=== PATIENT | female | born 1990 | race Caucasian/White ===

== ENCOUNTER → 2021-06-30 | Outpatient (CLI) | payer BC, SELFPAY ==
[2021-06-30 14:33] LABS: hCG Titer Quant., Serum 148 mIU/mL (1-3)
== END | disposition home or self-care (01) ==
LOC: LAB 13:14
PROVIDERS: Referring Provider Obstetrics & Gynecology; Visit Provider Obstetrics & Gynecology
DX: N91.2 Amenorrhea, unspecified (principal)
CPT/HCPCS: 36415; 84702

== ENCOUNTER → 2021-07-02 | Outpatient (CLI) | payer BC, SELFPAY ==
[2021-07-02 14:02] LABS: hCG Titer Quant., Serum 430 mIU/mL (1-3)
== END | disposition home or self-care (01) ==
LOC: LAB 12:26
PROVIDERS: PCP Family Medicine; Referring Provider Obstetrics & Gynecology; Visit Provider Obstetrics & Gynecology
DX: N91.2 Amenorrhea, unspecified (principal)
CPT/HCPCS: 36415; 84702

== ENCOUNTER → 2021-08-07 | Outpatient (CLI) | payer BC, SELFPAY ==
[2021-08-07 17:53] LABS: Amphetamine Urine VISTA NEGATIVE (<1000 ng/mL); Barbiturate Urine VISTA NEGATIVE (< 200 ng/mL); Benzodiazepine Urine VISTA NEGATIVE (< 200 ng/mL); Cocaine Urine VISTA NEGATIVE (< 300 ng/mL); Ecstacy Urine VISTA NEGATIVE (< 500 ng/mL); Methadone Urine VISTA NEGATIVE (< 300 ng/mL); PCP Urine VISTA NEGATIVE (< 25 ng/mL); THC Urine VISTA NEGATIVE (< 50 ng/mL); Vista UDS pH Range 6
[2021-08-10 07:07] LABS: Chlamydia By Nucleic Acid AMP Negative (Negative)
[2021-08-10 08:34] LABS: Gonococcus By Nucleic Acid AMP Negative (Negative)
[2021-08-12 16:30] LABS: HPV Reflexed? NOT INDICATED
== END | disposition home or self-care (01) ==
PROVIDERS: PCP Family Medicine; Visit Provider Obstetrics & Gynecology
DX: Z34.90 Encounter for supervision of normal pregnancy, unspecified, unspecified trimester (principal)
CPT/HCPCS: 80307; 87086; 87088; 87491; 87591; 88175; G0145

== ENCOUNTER → 2021-08-13 | Outpatient (CLI) | payer BC, SELFPAY ==
[2021-08-13 12:25] LABS: Hematocrit 39.6 % (37-47); Hemoglobin 13.6 g/dL (12.0-15.0); Red Blood Count 4.22 M/mm3 (4.2-5.4); White Blood Count 10.8 K/mm3 (4.4-11.0)
[2021-08-13 12:26] LABS: Absolute Lymphocyte Count 2.75 X10^3/uL (0.83-4.51); Absolute Neutrophil Count 7.1 X10^3/uL (2.0-7.7); Basophil# 0.05 X10^3/uL; Basophil% 0.5 % (0-1); Eosinophil# 0.21 X10^3/uL; Eosinophils% 1.9 % (0-5); Lymphocyte # 2.75 X10^3/ul (0.83-4.51); Lymphocyte % 25.5 % (19-41); Mean Corp Hgb Conc 34.3 g/dL (32-36); Mean Corpuscular Hgb 32.2 pg (27.0-32.0); Mean Corpuscular Volume 93.8 fL (81-99); Mean Platelet Vol. 11.4 fl (6.2-12.0); Monocyte# 0.59 X10^3/uL; Monocyte% 5.5 % (0-10); NRBC Flagged by Analyzer 0 % (0-5); Neutrophil # 7.14 X10^3/uL (2.7-7.7); Neutrophil % 66.2 % (47-70); Platelet Count 256 K/mm3 (150-450); RBC Distribution Width CV 12.1 % (11.6-14.6); RBC Distribution Width SD 41.6 fl (35.1-43.9)
[2021-08-13 13:06] LABS: Glucose Challenge Gest 1H 50g 145 mg/dL (70-140)
[2021-08-13 13:07] LABS: NATERA MAILED SPECIMEN
[2021-08-13 13:42] LABS: HIV - WCH Non-Reactive (Nonreactive); Hepatitis B Surface Antigen Non-Reactive (Nonreactive); Hepatitis C Antibody Non-Reactive (Nonreactive); Rubella IgG Reactive (Nonreactive); Syphilis Antibodies Non-reactive
== END | disposition home or self-care (01) ==
LOC: LAB 11:52
PROVIDERS: PCP Family Medicine; Visit Provider Obstetrics & Gynecology
DX: Z34.90 Encounter for supervision of normal pregnancy, unspecified, unspecified trimester (principal)
CPT/HCPCS: 36415; 82950; 85025; 86703; 86762; 86780; 86803; 86850; 86900; 86901; 87340

== ENCOUNTER → 2021-08-19 | Outpatient (CLI) | payer BC, SELFPAY ==
[2021-08-19 10:47] LABS: Glucose GTT-Gestation. Fasting 109 mg/dL (<105)
[2021-08-19 12:05] LABS: Glucose GTT-Gestational 1 Hr 178 mg/dL (<190)
[2021-08-19 13:11] LABS: Glucose GTT-Gestational 2 Hr 151 mg/dL (<165)
[2021-08-19 14:02] LABS: Glucose GTT-Gestational 3 Hr 96 L (<145)
== END | disposition home or self-care (01) ==
LOC: LAB 09:45
PROVIDERS: PCP Family Medicine; Visit Provider Obstetrics & Gynecology
DX: Z13.1 Encounter for screening for diabetes mellitus (principal)
CPT/HCPCS: 36415; 82951; 82952

== ENCOUNTER → 2021-10-03 | Outpatient (CLI) | payer BC, SELFPAY | END | disposition home or self-care (01) | PROVIDERS: PCP Family Medicine; Referring Provider Obstetrics & Gynecology; Visit Provider Obstetrics & Gynecology | DX: Z34.90 Encounter for supervision of normal pregnancy, unspecified, unspecified trimester (principal) | CPT/HCPCS: 36415 ==

== ENCOUNTER → 2021-12-10 | Outpatient (CLI) | payer BC, SELFPAY ==
[2021-12-10 08:05] LABS: Glucose GTT-Gestation. Fasting 120 mg/dL (<105)
[2021-12-10 09:03] LABS: Glucose GTT-Gestational 1 Hr 240 mg/dL (<190)
[2021-12-10 10:09] LABS: Glucose GTT-Gestational 2 Hr 186 mg/dL (<165)
[2021-12-10 11:11] LABS: Glucose GTT-Gestational 3 Hr 84 L (<145)
== END | disposition home or self-care (01) ==
LOC: LAB 07:01
PROVIDERS: PCP Family Medicine; Visit Provider Obstetrics & Gynecology
DX: Z13.1 Encounter for screening for diabetes mellitus (principal)
CPT/HCPCS: 36415; 82951; 82952

== ENCOUNTER → 2022-01-08 | Outpatient (CLI) | payer BC, SELFPAY ==
--- NOTE | 2022-01-08 14:14 | US_ITS ---
STUDY: SECOND AND THIRD TRIMESTER OBSTETRICAL ULTRASOUND - LIMITED REASON FOR EXAM: Female, 31 years old. Gross. LMP: May 29, 2021 PRIOR ULTRASOUND: None. TECHNIQUE: Transabdominal TECHNICAL QUALITY: Adequate. FINDINGS: There is a single intrauterine fetus. The fetus is in a cephalic presentation. There is demonstrated cardiac activity with a heart rate of 143 bpm. There is a normal amniotic fluid volume. The largest amniotic fluid pocket measures 4.74 cm. The amniotic fluid index (LIANA) is 15.5 cm. The placenta is posterior in location and is not low lying. There are Grade 1 placental changes. The cervix measures 4.79 cm in length. BIOMETRY: BPD: 7.54 cm: 30 weeks, 3 days HC: 27.96 cm: 30 weeks, 4 days AC: 26.96 cm: 31 weeks, 0 days FL: 5.94 cm: 31 weeks, 0 days Age by LMP: 32 weeks, 0 days. VANESSA by LMP: March 05, 2022. age by current US: 30 weeks, 4 days. VANESSA by current US: March 15, 2021. Estimated weight: 1684 grams, +/- 253 grams, 50 percentile. Gender: Indeterminant US/OB Limited With Biometrics IMPRESSION: 1. Single live intrauterine at 30 weeks, 4 days. VANESSA is March 15, 2021. 2. EFW of 1684 g. 3. LIANA of 15.5 cm. 4. Posterior grade 1 placenta. 5. Vertex presentation. Electronically Signed: Velasquez Glover DO at 16:04 EDT Reading Location ID and State: [facility] / ID Tel [id number], Service support ,
== END | disposition home or self-care (01) ==
LOC: US 14:13
PROVIDERS: PCP Family Medicine; Referring Provider Obstetrics & Gynecology; Visit Provider Obstetrics & Gynecology
DX: O99.210 Obesity complicating pregnancy, unspecified trimester (principal); O24.419 Gestational diabetes mellitus in pregnancy, unspecified control; Z3A.00 Weeks of gestation of pregnancy not specified
CPT/HCPCS: 76816

== ENCOUNTER → 2022-01-09 | Outpatient (CLI) | payer BC, SELFPAY ==
[2022-01-09 13:10] LABS: Absolute Lymphocyte Count 2.53 X10^3/uL (0.83-4.51); Absolute Neutrophil Count 8.6 X10^3/uL (2.0-7.7); Basophil# 0.03 X10^3/uL; Basophil% 0.2 % (0-1); Eosinophil# 0.22 X10^3/uL; Eosinophils% 1.8 % (0-5); Hematocrit 36.7 % (37-47); Hemoglobin 12.3 g/dL (12.0-15.0); Lymphocyte # 2.53 X10^3/ul (0.83-4.51); Lymphocyte % 20.9 % (19-41); Mean Corp Hgb Conc 33.5 g/dL (32-36); Mean Corpuscular Hgb 31.5 pg (27.0-32.0); Mean Corpuscular Volume 93.9 fL (81-99); Mean Platelet Vol. 11.7 fl (6.2-12.0); Monocyte# 0.71 X10^3/uL; Monocyte% 5.9 % (0-10); NRBC Flagged by Analyzer 0 % (0-5); Neutrophil # 8.55 X10^3/uL (2.7-7.7); Neutrophil % 70.8 % (47-70); Platelet Count 254 K/mm3 (150-450); RBC Distribution Width CV 13.2 % (11.6-14.6); RBC Distribution Width SD 45.4 fl (35.1-43.9); Red Blood Count 3.91 M/mm3 (4.2-5.4); White Blood Count 12.1 K/mm3 (4.4-11.0)
== END | disposition home or self-care (01) ==
LOC: LAB 12:00
PROVIDERS: PCP Family Medicine; Referring Provider Obstetrics & Gynecology; Visit Provider Obstetrics & Gynecology
DX: Z34.80 Encounter for supervision of other normal pregnancy, unspecified trimester (principal)
CPT/HCPCS: 36415; 85025

== ENCOUNTER → 2022-02-05 | Outpatient (CLI) | payer BC, SELFPAY ==
--- NOTE | 2022-02-05 14:29 | US_ITS ---
STUDY: SECOND AND THIRD TRIMESTER OBSTETRICAL ULTRASOUND - LIMITED REASON FOR EXAM: Female, 31 years old Growth -- 36 weeks LMP: PRIOR ULTRASOUND: None. TECHNIQUE: Abdominal TECHNICAL QUALITY: Adequate. FINDINGS: There is a single intrauterine fetus. The fetus is in a cephalic presentation. There is demonstrated cardiac activity with a heart rate of 147 bpm. There is a normal amniotic fluid volume. The largest amniotic fluid pocket measures 6.8 cm. The amniotic fluid index (LIANA) is 13.29 cm. The placenta is posterior not low-lying There are Grade 1 placental changes. The cervix measures 3.3 cm in length. BIOMETRY: BPD: 8.12 cm: 32 weeks, 4 days HC: 30.4 cm: 33 weeks, 6 days AC: 31.7 cm: 35 weeks, 4 days FL: 6.5 cm: 33 weeks, 4 days Age by LMP: 36 weeks, 0 days. VANESSA by LMP: 03/05/2022. age by prior US: 34 weeks, 4 days. VANESSA by prior US: 03/15/2022 . age by current US: 33 weeks, 4 days. VANESSA by current US: 03/22/2022. Estimated weight: 2484 grams, +/- 373 grams, 19 percentile. US/OB Limited With Biometrics IMPRESSION: Viable intrauterine gestation approximately 33-34 weeks gestational age. No significant abnormality Electronically Signed: Braulio Gross MD at 18:10 EST ,
== END | disposition home or self-care (01) ==
LOC: OPUS 14:27
PROVIDERS: PCP Family Medicine; Referring Provider Obstetrics & Gynecology; Visit Provider Obstetrics & Gynecology
DX: O99.210 Obesity complicating pregnancy, unspecified trimester (principal); O24.419 Gestational diabetes mellitus in pregnancy, unspecified control; Z3A.00 Weeks of gestation of pregnancy not specified
CPT/HCPCS: 76816

== ENCOUNTER → 2022-02-06 | Outpatient (CLI) | payer BC, SELFPAY ==
[2022-02-06 18:53] LABS: Group B Strep DNA By PCR POSITIVE (Negative); Probe Check PASS
== END | disposition home or self-care (01) ==
PROVIDERS: PCP Family Medicine; Visit Provider Obstetrics & Gynecology
DX: Z34.90 Encounter for supervision of normal pregnancy, unspecified, unspecified trimester (principal)
CPT/HCPCS: 87653

== ENCOUNTER 2022-02-25 06:58 | Inpatient (IN) | payer BC, SELFPAY ==
[2022-02-25] VITALS (40 sets, daily range): BP systolic 106–145; BP diastolic 51–88; PULSE 72–125; TEMP 36.3–36.6; O2SAT 96–100; BMI 37.0
[2022-02-25] MEDS: Lactated Ringers 1,000 ML 200 ML IV ×3 (08:00→19:49)
--- NOTE | 2022-02-25 08:10 | HP.PCM.OB_ITS ---
HPI - General General Date of Admission: 02/25/22 HPI Narrative BRISEIDA NOVOA, is a 31 F at 38+6 who presents to L&D for IOL secondary to well controlled insulin dependent GDM. 3/80/-3 in the office on 02/20. complicated by obesity, GDM, positive GBS. Maternal Data Information VANESSA Calculator Estimated Delivery Date Method Current WG Current Estimate 03/05/22 LMP (Certain) 38w 6d PFSH PFSH Medical History Abrasion, left great toe, initial encounter Cellulitis of great toe, left History of cryptosporidiosis Home Medications prenat.vits,lydia,[id number] 1 tab PO DAILY 07/23/21 [History Last Taken Unknown] blood-glucose meter #1 ea 12/10/21 [Rx Last Taken Unknown] lancets #100 ea 12/10/21 [Rx Last Taken Unknown] lancets 33 gauge (BD Ultra Fine Lancets) #100 ea 12/10/21 [Rx Last Taken Unknown] lancets 33 gauge (BD Ultra Fine Lancets) #100 ea 12/10/21 [Rx Last Taken Unknown] pen needle, diabetic 32 gauge x 5/32 (BD Ultra-Fine Anny Pen Needle) #100 ea 02/24/22 [Rx Last Taken Unknown] insulin degludec 100 unit/mL (3 mL) subcutaneous pen (Tresiba FlexTouch U-100 insulin) 10 unit subcut DAILY gestational diabetes 02/25/22 [History Last Taken 02/24/22 22:00 4] insulin lispro 100 unit/mL subcutaneous pen (Humalog KwikPen (U-100) Insulin) 10 unit subcut TID gestational diabetes 02/25/22 [History Last Taken 02/24/22 18:30 28 units] Allergy/AdvReac Type Severity Reaction Status Date / Time amoxicillin [From Augmentin] Allergy Mild rash Verified 02/25/22 07:19 clavulanic acid Allergy Mild rash Verified 02/25/22 07:19 [From Augmentin] Family History Father Hypertension COPD (chronic obstructive pulmonary disease) Diverticulitis Surgical History S/P tonsillectomy and adenoidectomy Social History adopted: No household members: spouse number of children: 1 current occupational status: unemployed current occupation: [employer] pets and animals: Yes (avoid litter box) pets and animals: cat(s) and dog(s) Smoking Status: Former smoker alcohol intake: never substance use type: does not use do you feel safe at home: Yes additional social history: spouse:Lamine History 3 Elective abortions Hx Para 1 Spontaneous abortions 1 Hx # Term Pregnancies Ectopic pregnancies Hx # Pregnancies Multiple births # of living children 1 Past Pregnancies Del. Date Name GA/Weeks Outcome Route Bth Weight Gen Labor Lgth Anesthesia Del Locatn Provider FOB Unknown 04/15/17 Rhylynn 37 live - full term 5# 6oz Fe male 18 hr epidural [place] Lamine Unknown 04/2021 < 5 wk. no intervention spontaneous Delivery Date: Last Updated by: Peg Heath CUT OFF SAW SET UP OPERATOR, CUT OFF SAW SET UP OPERATOR-C GDM. Attempt vacuum but pop off. Placental abruption at end Visit Details Expected Delivery Route/Plan Labor Preferences- CB/BF classes: [] labor support person: [] labor intervention preferences: [] pain management options preferred: [] cut cord/dad catch: [] : [] PP control planned: [] discussed possible routes of delivery and associated risks: [] special requests: [] Plans Covid status: discussed Flu vaccine: discussed Tdap vaccine: [] Rhogam: [] LARC form signed: [] Problem list reviewed and updated with the most current plan of care details and appropriate orders placed. Relevant counseling for the gestational age provided. Continue routine care and follow up unless otherwise noted in visit notes/problem list details OB Flowsheet Initial Weight: Not Recorded Date -?-?-?-?-?-?-?-?-?-?-?-?- EGA Weight BP Urine Prot -?-?-?-?-?-?-?-?-?-?-?-?- Glucose FHR FuHt Pres Dilation -?-?-?-?-?-?-?-?-?-?-?-?- Effaced St Visit Note 08/07/21 -?-?-?-?-?-?-?-?-?-?-?-?- 10w 0d 203 lb 120/80 -?-?-?-?-?-?-?-?-?-?-?-?- 170 -?-?-?-?-?-?-?-?-?-?-?-?- SM- CRL cons wit h LMP 09/05/21 -?-?-?-?-?-?-?-?-?-?-?-?- 14w 1d 202 lb 2 oz 122/74 Nega tive -?-?-?-?-?-?-?-?-?-?-?-?- Negative 157 -?-?-?-?-?-?-?-?-?-?-?-?- JV- elevated fas ting in 3 hr. will recheck gct at 28 weeks. 10/03/21 -?-?-?-?-?-?-?-?-?-?-?-?- 18w 1d 205 lb 6 oz 100/60 Nega tive -?-?-?-?-?-?-?-?-?-?-?-?- Negative 145 -?-?-?-?-?-?-?-?-?-?-?-?- SM- no vb lof no ctx 10/31/21 -?-?-?-?-?-?-?-?-?-?-?-?- 22w 1d 206 lb -?-?-?-?-?-?-?-?-?-?-?-?- 155 22 -?-?-?-?-?-?-?-?-?-?-?-?- JV-no lof, vag b leeding or dec fm. pt prefers to have the 3 hr at 28 weeks rather than the 1 hr gct. 11/28/21 -?-?-?-?-?-?-?-?-?-?-?-?- 26w 1d 211 lb 120/72 Negative -?-?-?-?-?-?-?-?-?-?-?-?- Negative 145 26 -?-?-?-?-?-?-?-?-?-?-?-?- SM- no vb lof go od fm no regular ctx 12/12/21 -?-?-?-?-?-?-?-?-?-?-?-?- 28w 1d 215 lb 2 oz 113/71 Nega tive -?-?-?-?-?-?-?-?-?-?-?-?- Negative 148 29 -?-?-?-?-?-?-?-?-?-?-?-?- JV- pt was only able to collect one fasting and 1 2-hr pp so far as she just received her monitor last night. So far her fasting was elevated at 120 but she had a burger with a bun and fries for dinner. She plans to alter her diet and continue monitoring this week. She will call us for more instruction until she can get in with Dr. Gudino next week. 12/26/21 -?-?-?-?-?-?-?-?-?-?-?-?- 30w 1d 213 lb 8 oz 112/67 Nega tive -?-?-?-?-?-?-?-?-?-?-?-?- Negative 140 32 -?-?-?-?-?-?-?-?-?-?-?-?- SM- no vb lof go od fm no regular ctx 01/09/22 -?-?-?-?-?-?-?-?-?-?-?-?- 32w 1d 215 lb 106/65 Negative -?-?-?-?-?-?-?-?-?-?-?-?- Negative 145 -?-?-?-?-?-?-?-?-?-?-?-?- JV- nst reactive . growth scan showed 50th% for weight and normal LIANA yesterday. 01/13/22 -?-?-?-?-?-?-?-?-?-?-?-?- 32w 5d 215 lb 111/63 Negative -?--?-?-?-?-?-?-?-?-?-?-?- Negative 130 -?-?-?-?-?-?-?-?-?-?-?-?- JV- NST reactive . glucose levels all under good control. recently decreased her insulin 2 points. 01/20/22 -?-?-?-?-?-?-?-?-?-?-?-?- 33w 5d 216 lb 4 oz 106/62 Nega tive -?-?-?-?-?-?-?-?-?-?-?-?- Negative 150 -?-?-?-?-?-?-?-?-?-?-?-?- MH-NST only reac tive 01/23/22 -?-?-?-?-?-?-?-?-?-?-?-?- 34w 1d 215 lb 3 oz 103/65 Nega tive -?-?-?-?-?-?-?-?-?-?-?-?- Negative 130 -?-?-?-?-?-?-?-?-?-?-?-?- JV- glucose leve ls well controlled. NST reactive. pt has persistent sinus ifxn. will start zpak. 01/26/22 -?-?-?-?-?-?-?-?-?-?-?-?- 34w 4d 214 lb 122/80 Negative -?-?-?-?-?-?-?-?-?-?-?-?- Negative 140 35 -?-?-?-?-?-?-?-?-?-?-?-?- MH-No VB, LOF. G ood FM. Reactive NST. BS well controlled. 02/03/22 -?-?-?-?-?-?-?-?-?-?-?-?- 35w 5d 210 lb 118/70 Negative -?-?-?-?-?-?-?-?-?-?-?-?- Negative 140 -?-?-?-?-?-?-?-?-?-?-?-?- MH-NST only reac tive 02/06/22 -?-?-?-?-?-?-?-?-?-?-?-?- 36w 1d 217 lb 4 oz 124/76 Nega tive -?-?-?-?-?-?-?-?-?-?-?-?- Negative 147 36 Cephalic -?-?-?-?-?-?-?-?-?-?-?-?- JV- pt declines exam. she states that it causes contractions. gbs collected. nst reative. growth 19th%. continue twice weekly nsts and deliver at 39 weeks. 02/10/22 -?-?-?-?-?-?-?-?-?-?-?-?- 36w 5d 219 lb 102/60 Negative -?-?-?-?-?-?-?-?-?-?-?-?- Negative 140 -?-?-?-?-?-?-?-?-?-?-?-?- MH-NST only reac tive 02/13/22 -?-?-?-?-?-?-?-?-?-?-?-?- 37w 1d 218 lb 2 oz 110/71 Nega tive -?-?-?-?-?-?-?-?-?-?-?-?- Negative 150 37 Cephalic -?-?-?-?-?-?-?-?-?-?-?-?- JV- nst reactive . no complaints today declines exam. 02/20/22 -?-?-?-?-?-?-?-?-?-?-?-?- 38w 1d 222 lb 6 oz 124/80 Nega tive -?-?-?-?-?-?-?-?-?-?-?-?- Negative 140 38 Cephalic 3 -?-?-?-?-?-?-?-?-?-?-?-?- 80 -3 JV- reacti ve nst JV- reactive nst. IOL set up for next Wednesday (first available opening) 02/25/22 -?-?-?-?-?-?-?-?-?-?-?-?- 38w 6d 222 lb 6.819 oz 118/65 -?-?-?-?-?-?-?-?-?-?-?-?- -?-?-?-?-?-?-?-?--?-?-?-?- NST FHR Rate Baby A Baseline: 150 Variability:: Moderate Accelerations:: 15 x 15 Decelerations:: None NST Reactive:: Yes FHR Category:: Category I Uterine Activity:: q10 minutes ROS Cardiovascular Cardiovascular: Denies abdominal pain, chest pain, diaphoresis, dyspnea, edema or fatigue Respiratory/Chest Respiratory/Chest: Denies change in mental status, chest congestion, chest tightness, cough, shortness of breath at rest, shortness of breath with exertion, breast mass, breast pain, breast skin changes, breast swelling, change in breast shape or nipple discharge Gastrointestinal Gastrointestinal: Denies diarrhea, hemorrhoids, nausea, vomiting or weight changes Genitourinary Genitourinary: Denies abdominal discomfort, burning urination, change in libido, change in urinary stream, contractions, difficulty urinating, dysuria, movement, low back pain, urinary frequency, urinary hesitancy, urinary incontinence or urinary urgency Musculoskeletal Musculoskeletal: Reports none Integumentary Integumentary: Reports none Neurologic Neurologic: Reports none Psychiatric Psychiatric: Reports none Endocrine Endocrinology: Reports none Hematologic/Lymphatic Hematologic/Lymphatic: Reports none Allergic/Immunologic Allergic/Immunologic: Reports none Vital Signs Vital Signs Vital Signs: 02/25/22 07:45 02/25/22 07:45 02/25/22 09:21 Temperature 97.3 F L Pulse Rate 77 Blood Pressure 118/65 BP Systolic 118 BP Diastolic 65 Weight Weight: 222 lb 6.819 oz Body Mass Index (BMI) 37.0 Physical Exam Const alert, oriented x3 and no apparent distress General Appearance: cooperative, comfortable and well kempt; Negative for in distress Orientation / Consciousness: awake and oriented to person Exam Limitations: no limitations HEENT normocephalic Mouth: oral and palatal mucosa normal Neck full ROM and thyroid normal Chest inspection of chest normal Resp normal respiratory effort Effort and Inspection: able to speak in complete sentences and symmetric chest movement Cardio regular rate Peripheral Pulses: pulses 2+ throughout GI normal to inspection, nondistended, normoactive bowel sounds Inspection: gravid no CVA tenderness and appearance of the vagina normal External Female Exam: normal appearance of the urethra; Negative for external lesion OB / External & Speculum: external exam normal Manual OB Exam: estimated gestational size appropriate and presentation cephalic Uterus Palpation: Negative for uterus tender Extremity normal to inspection Skin no rashes or lesions noted Neuro deep tendon reflexes 2+ bilaterally and gait normal Motor Exam: strength 5/5 throughout and clonus absent Psych Activity / Motor Behavior: appropriate eye contact Speech: normal speech Labs Labs Labs: Blood Type B POSITIVE Antibody Screen NEGATIVE Hct 36.2 % (37-47) L Hgb 12.0 g/dL (12.0-15.0) Pap Smear Negative Obstetrics US Syphilis Total Ab Non-reactive Rubella IgG Antibody Reactive (Nonreactive) Hep Bs Antigen Non-Reactive (Nonreactive) Chlamydia DNA (JAIME) Negative (Negative) Neisseria gonorrhoeae DNA (JAIME) Negative (Negative) HIV 1&2 Antibody Non-Reactive (Nonreactive) Glucose 1 Hr 50 gm 145 mg/dL (70-140) H Group B Strep DNA POSITIVE (Negative) H Miscellaneous Test Assessment & Plan (1) GBS (group B streptococcus) infection: COMMENT: Needs PCN at delivery (2) Gestational diabetes: COMMENT: sees endocrine, on insulin. plan 2x weekly testing, growth us q 4 weeks, deliver at 39. 01/08 growth nl 1684g 50%. 02/05 growth NL (3) Obesity affecting : COMMENT: BMI 32 1 TM GCT encouraged healthy weight gain (4) : QUALIFIERS: Weeks of gestation: 38 weeks Qualified Code(s): Z3A.38 - 38 weeks gestation of COMMENT: anatomy nl, NIPT low risk, declined carrier screen. AFP Negative 10/08/21 (5) Supervision of other normal : COMMENT: PRR VANESSA:03/05/22, girl (secret) PC:Rhylynn. Sp:Lamine PLAN: Plan Patient presents for IOL for GDM. -pitocin per protocol -monitor blood glucose per protocol for insulin dependent GDM Pain management: plans epidural. GBS positive plan IV PCN. no reaction to PCN per patient. Management of any complications: none I have reviewed the [facility] and made any clinically relevant updates. Dr. Art updated on assessment, plan of care and agrees with CNM/DO co- management of care for insulin dependent GDM.
[2022-02-25 08:20] LABS: Basophil# 0.05 X10^3/uL; Basophil% 0.4 % (0-1); Eosinophil# 0.28 X10^3/uL; Eosinophils% 2.1 % (0-5); Hematocrit 36.2 % (37-47); Lymphocyte % 23.9 % (19-41); Mean Corp Hgb Conc 33.1 g/dL (32-36); Mean Corpuscular Volume 93.5 fL (81-99); Mean Platelet Vol. 11.8 fl (6.2-12.0); Monocyte# 0.76 X10^3/uL; Monocyte% 5.7 % (0-10); NRBC Flagged by Analyzer 0 % (0-5); Neutrophil # 9.03 X10^3/uL (2.7-7.7); Neutrophil % 67.5 % (47-70); Platelet Count 254 K/mm3 (150-450); RBC Distribution Width CV 13.5 % (11.6-14.6); RBC Distribution Width SD 46.1 fl (35.1-43.9); Red Blood Count 3.87 M/mm3 (4.2-5.4); White Blood Count 13.4 K/mm3 (4.4-11.0)
[2022-02-25] MEDS: Oxytocin 15 Units/NS 250ml 15 UNITS/250 ML IV.SOLN 2 UNITS IV (08:20)
[2022-02-25 08:26] LABS: Bedside Glucose 135 mg/dL (74-106)
[2022-02-25 10:10] LABS: Bedside Glucose 109 mg/dL (74-106)
[2022-02-25] MEDS: Penicillin G 3,000,000 Units 50 ML 100 UNITS IV ×3 (13:10→21:44)
--- NOTE | 2022-02-25 13:10 | PN_ITS ---
Progress Note The nurse journeyman carpenter asked for assistance in rupturing membranes. pt is sitting up in bed and has no complaints. current tracing: FHT: Moderate variability reactive no decelerations category I tracing [place]: q3 min Contractions cx: 4-5/80/-2 membranes ruptured with clear fluid return reviewed tracing abnormalities since last note: same, no changes A/P: GDMB glucose levels are 100's membranes ruptured continue pitocin.
[2022-02-25] MEDS: fentaNYL-bupivacaine (epidural) 100 ML BAG EPIDURAL (14:05)
[2022-02-25 14:41] LABS: Bedside Glucose 90 mg/dL (74-106)
[2022-02-25 16:05] LABS: Bedside Glucose 123 mg/dL (74-106)
[2022-02-25 17:10] LABS: Bedside Glucose 75 mg/dL (74-106)
--- NOTE | 2022-02-25 18:03 | PCM.PN.OB ---
Subjective Subjective pt comfortable with epidural Objective Data Objective Data Vital Signs: Vital Signs Temp Pulse BP Pulse Ox 97.3 F L 78 125/73 H 100 02/25/22 17:09 02/25/22 16:18 02/25/22 16:18 02/25/22 14:42 Weight: 222 lb 6.819 oz Body Mass Index (BMI) 37.0 Intake & Output: Intake and Output for Last 24 Hours 02/23/22 02/24/22 02/25/22 23:59 23:59 23:59 Intake Total 1217.90 / 1217.90 Output Total 1000 / 1000 Balance 217.90 / 217.90 Lab / Micro Data Attestation: I reviewed the patient's lab results. Result Diagrams: 02/25/22 08:00 Labs: Laboratory Results - last 24 hr 02/25/22 08:00: WBC 13.4 H, RBC 3.87 L, Hgb 12.0, Hct 36.2 L, MCV 93.5, MCH 31.0, MCHC 33.1, RDW Std Deviation 46.1 H, RDW Coeff of Umberto 13.5, Plt Count 254, MPV 11.8, Immature Gran % (Auto) 0.400, Neut % (Auto) 67.5, Lymph % (Auto) 23.9, [place] % (Auto) 5.7, Eos % (Auto) 2.1, Baso % (Auto) 0.4, Absolute Neuts (auto) 9.0 H, Absolute Lymphs (auto) 3.20, Nucleated RBC % 0 02/25/22 08:00: Blood Type B POSITIVE, Antibody Screen NEGATIVE 02/25/22 08:06: POC Glucose 135 H 02/25/22 09:49: POC Glucose 109 H 02/25/22 14:20: POC Glucose 90 02/25/22 15:42: POC Glucose 123 H 02/25/22 16:47: POC Glucose 75 Physical Exam Const alert, oriented x3 and no apparent distress General Appearance: cooperative and comfortable GI Palpation: soft Uterus Palpation: Negative for uterus tender Amniotic Fluid: clear amniotic fluid Neuro oriented x3 Psych mental status grossly normal NST FHR Rate Baby A Baseline: 140 Variability:: Moderate Accelerations:: 15 x 15 Decelerations:: None NST Reactive:: Yes FHR Category:: Category I Uterine Activity:: MDU 190 after 6pm, pitocin on 16mu Assessment & Plan (1) GBS (group B streptococcus) infection: COMMENT: adequately treated. (2) Gestational diabetes: COMMENT: sees endocrine, on insulin. plan 2x weekly testing, growth us q 4 weeks, deliver at 39. 01/08 growth nl 1684g 50%. 02/05 growth NL PLAN: continue insulin protocol. glucose currently controlled. (3) Obesity affecting : COMMENT: BMI 32 1 TM GCT encouraged healthy weight gain (4) Supervision of other normal : COMMENT: PRR VANESSA:03/05/22, girl (secret) PC:Rhylynn. Sp:Lamine (5) : QUALIFIERS: Weeks of gestation: 38 weeks Qualified Code(s): Z3A.38 - 38 weeks gestation of COMMENT: anatomy nl, NIPT low risk, declined carrier screen. AFP Negative 10/08/21 (6) Encounter for induction of labor: COMMENT: pitocin induction. currently on 16mu increasing per protocol. IUPC in place
[2022-02-25] MEDS: Ondansetron 4 MG/2 ML Vial IV (18:32)
[2022-02-25 18:35] LABS: Bedside Glucose 75 mg/dL (74-106)
[2022-02-25 19:11] LABS: Bedside Glucose 80 mg/dL (74-106)
[2022-02-25 19:51] LABS: Bedside Glucose 65 mg/dL (74-106)
[2022-02-25 20:51] LABS: Bedside Glucose 75 mg/dL (74-106)
[2022-02-25] MEDS: 0.9% Saline Lock 10 ML Syringe IV (21:44)
[2022-02-25] MEDS: DiphenhydrAMINE 50 MG/ML Syringe IV (21:44)
[2022-02-25 21:50] LABS: Bedside Glucose 76 mg/dL (74-106)
[2022-02-25 23:00] LABS: Bedside Glucose 80 mg/dL (74-106)
[2022-02-25] MEDS: Oxytocin 15 Units/NS 250ml 15 UNITS/250 ML IV.SOLN 83 UNITS IV (23:33)
[2022-02-25] MEDS: Oxytocin 10 UNITS/ML Vial IM (23:34)
--- NOTE | 2022-02-25 23:42 | OP.PCM_ITS ---
Assessment & Plan (1) (spontaneous vaginal delivery): COMMENT: s/p IOL for GDM insulin dependent.38+6. girl:Ruby. MILLER Maternal Data Information VANESSA Calculator Estimated Delivery Date Method Current WG Current Estimate 03/05/22 LMP (Certain) 38w 6d Final VANESSA: 03/05/22 Vaginal Delivery Maternal Presentation Maternal Presentation: Medically Indicated Induction (GDM insulin) Type of Induction: Pitocin and Amniotomy Medical Reason for Induction: Maternal Medical Condition: list: (GDM 2) Operative Information Date of Procedure: 02/25/22 Pre-Operative Diagnosis: Post-Operative Diagnosis: same Surgery / Procedure Performed: Spontaneous Vaginal Delivery Type of Anesthesia: Epidural Drain: [place] to straight drain Estimated Blood Loss: 200 Time of Delivery: 23:17 Findings Description of Procedure: Patient began pushing and delivered the head in the CHARMAINE presentation. The head was delivered atraumatically . The anterior and posterior shoulders delivered without complication followed by the rest of the infant and the was placed on the maternal abdomen. Delayed cord clamping was employed for approximately 60 seconds. Cord was clamped and cut and gentle traction was applied to the cord and the placenta delivered spontaneously immediately following it was noted to be intact with three-vessel cord. The perineum and vagina were inspected and 1st degree laceration repaired with 3.0 Vicryl in usu al fashion. EBL was 200cc. Patient and infant tolerated delivery well. entered recovery phase in stable condition, bonding skin to skin Presentation: CHARMAINE Amniotic Membrane Rupture Type: Artificial Time of Membrane Rupture: 1300 Amniotic Fluid Description: Clear Placental Delivery Description: Spontaneous Placenta Disposition: [facility] Cord Vessel Description: 3 Vessels Cord Entanglement: None A Gender: Female (1 minute): 8 (5 minute): 9 Delayed Cord Clamping: Yes Post Vaginal Delivery Medications Given After Delivery: IV Pitocin Episiotomy Description: None Laceration: 1st degree Complication Complications: None Procedures Urinary/Genital [id number]: [id number] Vaginal Delivery global pkg (CNM delivery)
--- NOTE | 2022-02-25 23:47 | DCINST_ITS ---
Discharge Instructions Diet Discharge Diet: No restrictions Activity Discharge Activity: May Not Drive and May Shower May resume sexual activity in: 6 weeks (after visit) Weight Bearing Status: Full weight bearing Dressing / Incision Call your doctor if your incision/area has: Sudden Increased Bleeding, Increased Pain/ Swelling and Foul Smelling Discharge Call your doctor if you observe: Fever of 101 or Higher, Numbness or Tingling, Change in Color, Inability to urinate, Inability to have a bowel movement, Using more than 1 pad per hour, Shortness of breath, Dizziness, Fainting spells, Chest pain, Calf discomfort and Uncontrolled pain Follow Up Care Please Follow Up With: Analy Hinkle CNM When: 6 weeks , please call office to make an appointment. Congratulations on the of your baby Lisandra! Test Results: Test results from this visit will be discussed in further detail at your follow- up appointment, if applicable. Discharge Plan Admission Admit Date/Time: 02/25/22 06:58 Attending Provider: Anayl Hinkle Primary Care Provider: Eduin Lora Discharge Orders/Prescriptions Prescriptions: No Action prenat.vits,lydia,[id number] Tablet 1 tab PO DAILY insulin degludec [Tresiba FlexTouch U-100] 100 unit/mL (3 mL) insulin pen 10 unit subcut DAILY insulin lispro [Humalog KwikPen Insulin] 100 unit/mL insulin pen 10 unit subcut TID (DME) lancets [BD Ultra Fine Lancets] 33 gauge misc See Rx Instructions .MEDSUPPLY Qty: 100 0RF Rx Instructions: As directed (DME) blood-glucose meter Misc See Rx Instructions miscellaneous .MEDSUPPLY Qty: 1 0RF Rx Instructions: As directed- Test fasting and 2 hours after meals (DME) lancets Misc See Rx Instructions .MEDSUPPLY Qty: 100 4RF Rx Instructions: As directed (DME) lancets [BD Ultra Fine Lancets] 33 gauge misc See Rx Instructions .MEDSUPPLY Qty: 100 4RF Rx Instructions: As directed (DME) pen needle, diabetic [BD Ultra-Fine Anny Pen Needle] 32 gauge x 5/32 needle See Rx Instructions .Route Qty: 100 1RF Rx Instructions: As directed Referrals / Follow Up: Eduin Lora MD [Primary Care Provider] -
[2022-02-26] VITALS (35 sets, daily range): BP systolic 106–127; BP diastolic 51–77; PULSE 80–110; RESP 16; TEMP 35.7–36.8; O2SAT 97–98
[2022-02-26 00:51] LABS: Bedside Glucose 93 mg/dL (74-106)
[2022-02-26] MEDS: Methylergonovine 0.2 MG/ML Ampul IM (00:56)
[2022-02-26 07:00] LABS: Bedside Glucose 101 mg/dL (74-106)
--- NOTE | 2022-02-26 07:44 | PN.OBGYN_ITS ---
Subjective Subjective Patient doing well without complaints. Tolerating PO. Ambulating and voiding without difficulty. Feeding well. Denies chest pain, shortness of breath, calf pain/swelling, fevers, chills, lightheadedness. Objective Data Objective Data Vital Signs: Vital Signs Temp Pulse Resp BP Pulse Ox O2 Del Method 97.6 F L 91 16 121/77 H 98 Room Air 02/26/22 05:11 02/26/22 05:11 02/26/22 05:11 02/26/22 05:11 02/26/22 05:11 02/26/22 05:11 Oxygen Delivery Method Room Air Weight: 222 lb 6.819 oz Body Mass Index (BMI) 37.0 Intake & Output: Intake and Output for Last 24 Hours 02/24/22 02/25/22 02/26/22 23:59 23:59 23:59 Intake Total 2349.37 / 2349.37 1287.93 / 1287.93 Output Total 1000 / 1000 1400 / 1400 Balance 1349.37 / 1349.37 -112.07 / -112.07 Lab / Micro Data Result Diagrams: 02/25/22 08:00 Labs: Laboratory Results - last 24 hr 02/25/22 08:00: WBC 13.4 H, RBC 3.87 L, Hgb 12.0, Hct 36.2 L, MCV 93.5, MCH 31.0, MCHC 33.1, RDW Std Deviation 46.1 H, RDW Coeff of Umberto 13.5, Plt Count 254, MPV 11.8, Immature Gran % (Auto) 0.400, Neut % (Auto) 67.5, Lymph % (Auto) 23.9, [place] % (Auto) 5.7, Eos % (Auto) 2.1, Baso % (Auto) 0.4, Absolute Neuts (auto) 9.0 H, Absolute Lymphs (auto) 3.20, Nucleated RBC % 0 02/25/22 08:00: Blood Type B POSITIVE, Antibody Screen NEGATIVE 02/25/22 08:06: POC Glucose 135 H 02/25/22 09:49: POC Glucose 109 H 02/25/22 14:20: POC Glucose 90 02/25/22 15:42: POC Glucose 123 H 02/25/22 16:47: POC Glucose 75 02/25/22 17:51: POC Glucose 75 02/25/22 18:37: POC Glucose 80 02/25/22 19:28: POC Glucose 65 L 02/25/22 20:24: POC Glucose 75 02/25/22 21:29: POC Glucose 76 02/25/22 22:28: POC Glucose 80 02/26/22 00:24: POC Glucose 93 02/26/22 06:35: POC Glucose 101 Physical Exam Const alert and oriented x3 HEENT normocephalic Eyes PERRL Neck full ROM Resp normal respiratory effort GI soft to palpation GI Narrative: FF below U Assessment & Plan (1) (spontaneous vaginal delivery): COMMENT: s/p IOL for GDM insulin dependent.38+6. girl:Lisandra. LC (2) Gestational diabetes: COMMENT: sees endocrine, on insulin. PLAN: Plan s/p PPD # 1 1. routine post delivery care 2. breast feeding- support given 3. rh positive 4. rubella immune 5. glucose stable at present
[2022-02-26] MEDS: Acetaminophen 500 MG Tablet 1000 MG PO (09:28)
[2022-02-26] MEDS: 0.9% Saline Lock 10 ML Syringe IV (13:06)
[2022-02-27 02:00] VITALS: BP 117/71; PULSE 66; RESP 16; TEMP 36.4; O2SAT 97
[2022-02-27] MEDS: Acetaminophen 500 MG Tablet 1000 MG PO (02:19)
--- NOTE | 2022-02-27 08:14 | PCM.DC.SUM ---
Providers Date of Admission: 02/25/22 Primary Care Physician: Dr. Eduin Lora MD Reason For Visit: VAG Diagnosis Discharge Diagnosis (1) (spontaneous vaginal delivery): Status: Acute Code(s): O80 - Encounter for full-term uncomplicated delivery (2) Gestational diabetes: Status: Acute Code(s): O24.419 - Gestational diabetes mellitus in , unspecified control Medications at Discharge Home Medications prenat.vits,lydia,[id number] 1 tab PO DAILY 07/23/21 blood-glucose meter #1 ea 12/10/21 lancets #100 ea 12/10/21 lancets 33 gauge (BD Ultra Fine Lancets) #100 ea 12/10/21 lancets 33 gauge (BD Ultra Fine Lancets) #100 ea 12/10/21 pen needle, diabetic 32 gauge x 5/32 (BD Ultra-Fine Anny Pen Needle) #100 ea 02/24/22 naproxen 500 mg tablet,delayed release 500 mg PO BID PRN pain #40 tabs 02/27/22 Hospital Course Procedures - (vaginal delivery) Summary of Care Provided Minutes Spent on Discharge: 15 Hospital Course: The patient was admitted to L&D on 02/25/22 for IOL due to gestational diabetes on insulin. She was induced with pitocin and amniotomy and delivered around midnight on 02/26/22. She recovered well on ppd#0 and by PPD #1 she was ready to be discharged to home. Physical Exam Const alert, oriented x3 and no apparent distress General Appearance: cooperative and comfortable Resp normal respiratory effort Cardio regular rate GI normal to inspection, nondistended, normoactive bowel sounds GI Narrative: uterus is firm below umbilicus Palpation: soft Back/Spine no CVA tenderness and thoraco-lumbar ROM normal Extremity normal to inspection, no clubbing, cyanosis or edema, no calf tenderness and no pedal edema Psych mental status grossly normal, thought process normal, cooperative, affect normal, speech normal, activity/motor behavior normal, denies homicidal ideation and denies suicidal ideation Weight / BMI Weight Weight: 222 lb 6.819 oz Body Mass Index (BMI) 37.0 ABG / Lab / Microbiology Data Result Diagrams: 02/25/22 08:00 D/C Instructions Discharge Diet: No restrictions May resume sexual activity in: 6 weeks (after visit) Weight Bearing Status: Full weight bearing Call your doctor if your incision/area has: Sudden Increased Bleeding, Increased Pain/ Swelling and Foul Smelling Discharge Call your doctor if you observe: Fever of 101 or Higher, Numbness or Tingling, Change in Color, Inability to urinate, Inability to have a bowel movement, Using more than 1 pad per hour, Shortness of breath, Dizziness, Fainting spells, Chest pain, Calf discomfort and Uncontrolled pain Please Follow Up With: Analy Hinkle CNM When: 6 weeks , please call office to make an appointment. Congratulations on the of your baby Lisandra! Meaningful Use Info Meaningful Use Diagnoses (Choose all that apply): None applicable Discharge Plan Admission Admit Date/Time: 02/25/22 06:58 Primary Reason for Your Visit: vaginal delivery Attending Provider: Analy Hinkle Primary Care Provider: Eduin Lora Instructions Additional Instructions / Restrictions: No need to continue insulin at this time . Please do Continue monitoring fasting and 2 hr postprandial glucose levels for 2 more weeks. Call if glucose levels are over 120 fasting or 150 postprandial. In that case we may re-start the insulin. Discharge Orders/Prescriptions Prescriptions: New naproxen 500 mg tablet,delayed release (DR/EC) 500 mg PO BID PRN (Reason: pain) Qty: 40 0RF Continued prenat.vits,lydia,[id number] Tablet 1 tab PO DAILY Discontinued insulin degludec [Tresiba FlexTouch U-100] 100 unit/mL (3 mL) insulin pen 10 unit subcut DAILY insulin lispro [Humalog KwikPen Insulin] 100 unit/mL insulin pen 10 unit subcut TID No Action (DME) lancets [BD Ultra Fine Lancets] 33 gauge misc See Rx Instructions .MEDSUPPLY Qty: 100 0RF Rx Instructions: As directed (DME) blood-glucose meter Misc See Rx Instructions miscellaneous .MEDSUPPLY Qty: 1 0RF Rx Instructions: As directed- Test fasting and 2 hours after meals (DME) lancets Misc See Rx Instructions .MEDSUPPLY Qty: 100 4RF Rx Instructions: As directed (DME) lancets [BD Ultra Fine Lancets] 33 gauge misc See Rx Instructions .MEDSUPPLY Qty: 100 4RF Rx Instructions: As directed (DME) pen needle, diabetic [BD Ultra-Fine Anny Pen Needle] 32 gauge x 5/32 needle See Rx Instructions .Route Qty: 100 1RF Rx Instructions: As directed Referrals / Follow Up: Eduin Lora MD [Primary Care Provider] - Disposition Disposition (needs filled in before D/C Order can be placed): Home, Self Care
[2022-02-27 09:16] VITALS: BP 115/64; PULSE 89; RESP 16; TEMP 36; O2SAT 96
== END 2022-02-27 10:10 | disposition home or self-care (01) | DRG 807 ==
PROVIDERS: Obstetrics & Gynecology; Admitting Provider Registered Nurse; PCP Family Medicine; Visit Provider Registered Nurse
DX: O24.424 Gestational diabetes mellitus in childbirth, insulin controlled (principal); Z37.0 Single live birth; E66.8 Other obesity; Z68.32 Body mass index [BMI] 32.0-32.9, adult; O70.0 First degree perineal laceration during delivery; Z87.891 Personal history of nicotine dependence; O99.824 Streptococcus B carrier state complicating childbirth; Z3A.38 38 weeks gestation of pregnancy; O99.214 Obesity complicating childbirth
CPT/HCPCS: 59050; 82962; 85025; 86850; 86900; 86901; 99218; J7120; A4216; G0378; J2405

== ENCOUNTER → 2022-05-14 | Outpatient (CLI) | payer BC, SELFPAY ==
[2022-05-14 12:49] LABS: Glucose 2 Hour Postprandial 91 mg/dL (<140)
== END | disposition home or self-care (01) ==
LOC: LAB 09:42
PROVIDERS: PCP Family Medicine; Referring Provider Registered Nurse; Visit Provider Registered Nurse
DX: O24.419 Gestational diabetes mellitus in pregnancy, unspecified control (principal)
CPT/HCPCS: 36415; 82950

== ENCOUNTER 2022-10-12 12:39 | Emergency (ER) | payer BC, SELFPAY ==
[2022-10-12 12:40] VITALS: BP 147/75; PULSE 85; RESP 18; TEMP 36.6; O2SAT 98; BMI 32.3
--- NOTE | 2022-10-12 13:01 | ED.VIS.LOWEX ---
HPI History of Present Illness Chief Complaint: Lower Extremity Injury Detail of Chief Complaint: Left foot trauma Informant: patient Occured/Mechanism Mechanism/Context: Yes blunt trauma Comment: Dropped a plate on her left foot Onset/Context/Timing Onset: Today and Hours Context: Sudden Onset Timing: Continuous Quality of Pain: Dull and Aching Location: Left foot Current Severity: Mild Maximum Severity: Moderate Worsened by: Weightbearing Relieved by: Elevation breast Associated Symptoms Associated Symptoms: Negative for Parasthesia, Weakness or Loss of Funtion Narrative Narrative: Patient is a 32-year-old female who presents with injury to her left foot. She dropped a pipe on it. She presents because of pain, swelling discoloration. She reports increased pain with ambulating. She denies paresthesia, anesthesia motors. She denies prior injury. She has no contraindication to NSAIDs. Prior similar symptoms: No Recent Illness/Hospitalization: [facility] Medical History Abrasion, left great toe, initial encounter Cellulitis of great toe, left Encounter for induction of labor History of cryptosporidiosis Obesity affecting Supervision of other normal (spontaneous vaginal delivery) Home Medications prenat.vits,lydia,[id number] 1 tab PO DAILY 07/23/21 [History Last Taken Unknown] blood-glucose meter #1 ea 12/10/21 [Rx Last Taken Unknown] lancets #100 ea 12/10/21 [Rx Last Taken Unknown] lancets 33 gauge (BD Ultra Fine Lancets) #100 ea 12/10/21 [Rx Last Taken Unknown] lancets 33 gauge (BD Ultra Fine Lancets) #100 ea 12/10/21 [Rx Last Taken Unknown] pen needle, diabetic 32 gauge x 5/32 (BD Ultra-Fine Anny Pen Needle) #100 ea 02/24/22 [Rx Last Taken Unknown] naproxen 500 mg tablet,delayed release 500 mg PO BID PRN pain #40 tabs 02/27/22 [Rx Last Taken Unknown] Allergy/AdvReac Type Severity Reaction Status Date / Time amoxicillin [From Augmentin] Allergy Mild rash Verified 10/12/22 12:41 clavulanic acid Allergy Mild rash Verified 10/12/22 12:41 [From Augmentin] Family History Father Hypertension COPD (chronic obstructive pulmonary disease) Diverticulitis Surgical History S/P tonsillectomy and adenoidectomy Social History adopted: No household members: spouse number of children: 1 current occupational status: unemployed current occupation: [employer] pets and animals: Yes (avoid litter box) pets and animals: cat(s) and dog(s) Smoking Status: Former smoker alcohol intake: never substance use type: does not use do you feel safe at home: Yes additional social history: spouse:Lamine STAUFFER ED Constitutional Constitutional ED: Denies chills, fever(s), subjective or sweats Integumentary Reports other Details: Positive bruising. ; Denies Abrasions or rash Neurologic Neurologic: Denies paresthesias or weakness Hematologic/Lymphatic Hematologic/Lymphatic: Denies easy bleeding or easy bruising EXAM Physical Exam Const Vital Signs: 10/12/22 12:40 Temperature 97.8 F Temperature Source Temporal Pulse Rate 85 Respiratory Rate 18 Blood Pressure 147/75 H Blood Pressure Mean 99 Pulse Ox 98 Oxygen Delivery Method Room Air Positive well nourished and well developed General Appearance ED: well developed and NAD HEENT normocephalic and atraumatic Eyes PERRL Neck full ROM and supple Resp normal respiratory effort Cardio regular rate and regular rhythm Extremity Negative for normal to inspection Extremity Narrative: There is swelling of the left foot. There is bruising noted. There is pain to palpation over the base of the fourth metatarsal. She has pain both on the plantar and dorsal surface. There is no pain ovation over the lateral or medial malleolus. DP and PT pulse are palpable. Neuro oriented x3, CN's II-XII intact bilaterally, moves all extremities and no sensory deficits noted Sensorium / Orientation: alert Motor Exam: strength 5/5 throughout Psych mental status grossly normal Skin Skin Narrative: Bruising as previously noted MDM MDM MDM Narrative Medical decision making narrative: X-ray was obtained to evaluate for contusion versus fracture. Patient does have type 1 diabetes. Radiography Chest X-Ray - ED: Read by ED Physician (Three-view x-ray of the foot was independently reviewed and interpreted by me as negative.) Diagnostic Testing: Clinical Impression(s) from Imaging Studies Foot X-Ray 10/12/22 13:02 IMPRESSION: Normal x-ray examination of the foot. Electronically Signed: Elton Matthew MD at 13:15 EDT , Discharge Plan Triage Chief Complaint: Lower Extremity Injury ED Provider: Neptali Mcnally Dx/Rx/DC Orders Clinical Impression: Contusion of foot, left Instructions: ED Foot Contusion Prescriptions: No Action prenat.vits,lydia,[id number] Tablet 1 tab PO DAILY naproxen 500 mg tablet,delayed release (DR/EC) 500 mg PO BID PRN (Reason: pain) Qty: 40 0RF (DME) lancets [BD Ultra Fine Lancets] 33 gauge misc See Rx Instructions .MEDSUPPLY Qty: 100 0RF Rx Instructions: As directed (DME) blood-glucose meter Misc See Rx Instructions miscellaneous .MEDSUPPLY Qty: 1 0RF Rx Instructions: As directed- Test fasting and 2 hours after meals (DME) lancets Misc See Rx Instructions .MEDSUPPLY Qty: 100 4RF Rx Instructions: As directed (DME) lancets [BD Ultra Fine Lancets] 33 gauge misc See Rx Instructions .MEDSUPPLY Qty: 100 4RF Rx Instructions: As directed (DME) pen needle, diabetic [BD Ultra-Fine Anny Pen Needle] 32 gauge x 5/32 needle See Rx Instructions .Route Qty: 100 1RF Rx Instructions: As directed Primary Care Provider: Eduin Lora Referrals: Eduin Lora MD [Primary Care Provider] - 1 Week if not improving Activity Restrictions/Additional Instructions: 1. Elevate foot is much as possible 2. Apply ice 6-10 times a day for the next 3 to 5 days 3. Take Tylenol for your pain Disposition Disposition: Home, Self Care
--- NOTE | 2022-10-12 13:02 | RAD_ITS ---
STUDY: X-RAY - LEFT FOOT CLINICAL: Female, 32 years old. Bruising along the dorsal aspect of the foot following injury. TECHNIQUE: 3 view(s) of the foot. COMPARISON: None. FINDINGS: Normal talus, calcaneus, and tarsal bones. Normal visualized subtalar, talonavicular, calcaneocuboid, tarsal and tarsometatarsal articulations. Normal metatarsi. Normal metatarsophalangeal joint of the great toe. Normal tibial and fibular sesamoid bones. Normal interphalangeal joint of the great toe. Normal phalanges of the great toe. Normal second through fifth metatarsophalangeal joints. Normal interphalangeal joints and phalanges of the lesser toes. The soft tissue structures are unremarkable. RAD/Foot min 3 Views IMPRESSION: Normal x-ray examination of the foot. Electronically Signed: Elton Matthew MD at 13:15 EDT ,
== END 2022-10-12 13:39 | disposition home or self-care (01) ==
PROVIDERS: Emergency Provider Emergency Medicine; PCP Family Medicine; Visit Provider Emergency Medicine
DX: S90.32XA Contusion of left foot, initial encounter (principal); E10.9 Type 1 diabetes mellitus without complications; W20.8XXA Other cause of strike by thrown, projected or falling object, initial encounter; Z87.891 Personal history of nicotine dependence
CPT/HCPCS: 73630; 99282

== ENCOUNTER → 2023-06-03 | Outpatient (CLI) | payer BC, SELFPAY ==
[2023-06-03 12:20] LABS: Absolute Lymphocyte Count 2.53 X10^3/uL (0.83-4.51); Absolute Neutrophil Count 2.7 X10^3/uL (2.0-7.7); Basophil# 0.04 X10^3/uL; Basophil% 0.7 % (0-1); Eosinophil# 0.23 X10^3/uL; Eosinophils% 3.9 % (0-5); Hematocrit 40.7 % (37-47); Hemoglobin 13.7 g/dL (12.0-15.0); Lymphocyte # 2.53 X10^3/ul (0.83-4.51); Lymphocyte % 42.9 % (19-41); Mean Corp Hgb Conc 33.7 g/dL (32-36); Mean Corpuscular Hgb 30.6 pg (27.0-32.0); Mean Corpuscular Volume 91.1 fL (81-99); Mean Platelet Vol. 11.7 fl (6.2-12.0); Monocyte# 0.36 X10^3/uL; Monocyte% 6.1 % (0-10); NRBC Flagged by Analyzer 0 % (0-5); Neutrophil # 2.73 X10^3/uL (2.7-7.7); Neutrophil % 46.2 % (47-70); Platelet Count 226 K/mm3 (150-450); RBC Distribution Width CV 11.9 % (11.6-14.6); RBC Distribution Width SD 39.9 fl (35.1-43.9); Red Blood Count 4.47 M/mm3 (4.2-5.4); White Blood Count 5.9 K/mm3 (4.4-11.0)
[2023-06-03 12:31] LABS: Vitamin D,25 Hydroxy 30.4 ng/mL
[2023-06-03 12:47] LABS: Erythrocyte Sedimentation Rate 13 mm/hr (0-30)
[2023-06-03 13:02] LABS: AST(SGOT) 16 U/L (15-37); Alanine Aminotransfer ALT/SGPT 21 U/L (13-56); Albumin, Serum 3.7 g/dL (3.2-5.0); Alkaline Phosphatase 67 U/L (45-117); Anion Gap 5 (5-15); BUN 8 mg/dL (7-18); BUN/Creat Ratio 13.1 RATIO (10-20); CRP < 2.90 mg/L (0.0-3.0); Calcium,Total 8.6 mg/dL (8.5-10.1); Chloride 106 mmol/L (98-107); Cholesterol 137 mg/dL (200); Creatinine, Serum 0.61 mg/dL (0.55-1.02); EST Glomerular Filtration Rate 122 mL/min (>60); Est Glom Filt Rate - Afr Amer 148 mL/min (>60); Globulin 3.7 g/dL (2.2-4.2); Glucose 112 mg/dL (74-106); High Density Lipoprotein 45 mg/dL; Protein, Total 7.4 g/dL (6.4-8.2); Rheumatoid Factor < 10.0 IU/mL (<15); Sodium Level 138 mmol/L (136-145); Triglycerides 63 mg/dL; Very Low Density Lipoprotein 13 mg/dL (5-40)
[2023-06-03 13:44] LABS: Hemoglobin A1c 5.6 % (3.8-5.6)
[2023-06-04 13:07] LABS: Anti-Centromere B Ab <0.2 AI (0.0-0.9); Anti-Chromatin <0.2 AI (0.0-0.9); Anti-Jo <0.2 AI (0.0-0.9); Anti-Scleroderma-70 AB <0.2 AI (0.0-0.9); Anti-dsDNA Ab 1 IU/mL (0-9); RNP Ab 0.2 AI (0.0-0.9); SJOGREN'S Anti-SS-A test < 0.2 AI (0.0-0.9); SJOGREN'S Anti-SS-B test < 0.2 AI (0.0-0.9); Smith Ab <0.2 AI (0.0-0.9)
[2023-06-04 15:08] LABS: CCP IgG Antibodies 2 units (0-19); Endomysial Antibody IgA Negative (Negative); Immunoglobulin A 232 mg/dL (87-352); t-Transglutaminase IgA <2 U/mL (0-3)
[2023-06-08 16:00] LABS: Thyroid Stim Hormone (TSH) 1.04 uIU/mL (0.358-3.74)
== END | disposition home or self-care (01) ==
LOC: BIMLAB 10:59
PROVIDERS: PCP Internal Medicine; Visit Provider Internal Medicine
DX: M25.50 Pain in unspecified joint (principal); E66.9 Obesity, unspecified; R14.0 Abdominal distension (gaseous); E55.9 Vitamin D deficiency, unspecified
CPT/HCPCS: 36415; 80053; 80061; 82306; 82784; 83036; 83516; 84443; 85025; 85652; 86140; 86200; 86225; 86235; 86255; 86431

== ENCOUNTER → 2024-06-16 | Outpatient (CLI) | payer BC, SELFPAY | END | disposition home or self-care (01) | LOC: LABSPEC 14:06 | PROVIDERS: PCP Internal Medicine; Referring Provider Obstetrics & Gynecology; Visit Provider Obstetrics & Gynecology | DX: Z12.4 Encounter for screening for malignant neoplasm of cervix (principal) | CPT/HCPCS: 87624; 88175; G0145 ==

== ENCOUNTER → 2024-07-21 | Outpatient (CLI) | payer BC, SELFPAY ==
[2024-07-21 11:54] LABS: Hemoglobin A1c 5.7 % (<=5.6)
== END | disposition home or self-care (01) ==
LOC: LAB 10:51
PROVIDERS: PCP Internal Medicine; Referring Provider Obstetrics & Gynecology; Visit Provider Obstetrics & Gynecology
DX: Z86.32 Personal history of gestational diabetes (principal)
CPT/HCPCS: 36415; 83036

== ENCOUNTER → 2024-07-24 | Outpatient (CLI) | payer BC, SELFPAY ==
--- NOTE | 2024-07-24 15:16 | US_ITS ---
PROCEDURE: PELVIC W/ TRANSVAGINAL 07/24/2024 REASON FOR EXAM: LEFT LOWER QUADRANT PAIN TECHNIQUE: Transabdominal and transvaginal pelvic ultrasound. Color and spectral doppler analysis of the ovaries. COMPARISON: None. FINDINGS: Measurements: Uterus: 9.8 x 4.7 x 6.7 cm for volume of 159.4 mL Endometrial Thickness: 0.5 cm Right Ovary: 3.5 x 2.8 x 2.6 cm for volume of 13.8 ml Left Ovary: 10.2 x 7.4 x 9.5 cm for volume of 370.3 mL Uterus: Anteverted. Normal contour and myometrial echotexture. Endometrium: Normal echotexture. Right ovary: Normal size and echotexture. Left ovary: There is a cystic lesion in the left ovary measuring 8.5 x 6.0 x 7.9 cm. There is slight irregularity at the periphery of the cyst measuring up to 6 mm in thickness. No discrete papillary projection. There is suggestion of a thin internal septation within this lesion, though adjacent cysts could appear similar. Cul-de-sac: No free intraperitoneal fluid identified. DOPPLER: Color Doppler: Normal color flow doppler signal at both ovaries. Spectral Doppler: Normal arterial inflow and venous outflow signal in the left ovary. US/Pelvic w/ Transvaginal IMPRESSION: Cystic lesion with slightly irregular wall in the left ovary measuring up to 8. 5 cm, consistent with O-RADS 3 classification. Recommend Gynecology referral, and consider follow-up ultrasound in 6 months if not surgically excised. Reading Location: [facility]
== END | disposition home or self-care (01) ==
LOC: US 15:08
PROVIDERS: PCP Internal Medicine; Referring Provider Obstetrics & Gynecology; Visit Provider Obstetrics & Gynecology
DX: R10.32 Left lower quadrant pain (principal)
CPT/HCPCS: 76830; 76856